=== PATIENT | female | born 1965 | race Hispanic/Latino ===

== ENCOUNTER 2017-03-07 09:01 | Emergency (ER) | payer MEDICAID ==
[2017-03-07 09:05] VITALS: BMI 24.9
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
[2017-03-07 09:57] LABS: BASO # 0.1 K/uL (0.0-0.2); EOS # 0.1 K/uL (0.0-0.7); EOS % 0.8 % (0.0-4.0); HEMATOCRIT 36.2 % (34.0-47.0); LYMPH # 1.9 K/uL (1.0-4.3); LYMPH % 25.7 % (20.0-40.0); MEAN CELL VOLUME 95.8 fl (81.0-99.0); MEAN CORPUSCULAR HEMOGLOBIN 32.8 pg (27.0-31.0); MEAN CORPUSCULAR HGB CONC 34.2 g/dL (33.0-37.0); MONO # 0.5 K/uL (0.0-0.8); MONO % 6.6 % (0.0-10.0); NEUT # 4.8 K/uL (1.8-7.0); NEUT % 65.9 % (50.0-75.0); NRBC % 0.1 % (0.0-0.0); RED CELL DISTRIBUTION WIDTH 14.3 % (11.5-14.5); WHITE BLOOD COUNT 7.2 K/uL (4.8-10.8)
[2017-03-07 10:07] LABS: ALB/GLOB RATIO 1.3 (1.0-2.1); ALCOHOL SERUM < 10 mg/dl (0-10); ALKALINE PHOSPHATASE 57 U/L (38-126); ALT/SGPT 34 U/L (9-52); AST/SGOT 28 U/L (14-36); BILIRUBIN,TOTAL 0.5 mg/dl (0.2-1.3); BLOOD UREA NITROGEN 8 mg/dl (7-17); CALCIUM 9.2 mg/dL (8.4-10.2); CARBON DIOXIDE 25 mmol/L (22-30); CHLORIDE 105 mmol/L (98-107); GFR AFRICAN-AMERICAN > 60; GLUCOSE,RANDOM 104 mg/dL (65-105); POTASSIUM 4.1 MMOL/L (3.6-5.0); SODIUM 141 mmol/l (132-148); TOTAL PROTEIN 7.9 G/DL (6.3-8.2)
[2017-03-07 13:37] LABS: RBC URINE 4 /hpf (0-3); URINE BACTERIA OCC (<OCC); URINE BILIRUBIN NEGATIVE (NEGATIVE); URINE BLOOD NEGATIVE (NEGATIVE); URINE COLOR YELLOW (YELLOW); URINE GLUCOSE (UA) NEG (Normal); URINE KETONE NEGATIVE (NEGATIVE); URINE LEUKOCYTE ESTERASE MOD Leu/uL (Negative); URINE PROTEIN NEGATIVE (NEGATIVE); URINE UROBILINOGEN 0.2-1.0 mg/dL (0.2-1.0); WBC URINE 27 /hpf (0-5)
[2017-03-07 16:15] VITALS: O2SAT 98
--- NOTE | 2017-03-07 18:26 | RAD ---
HISTORY: psych clearance COMPARISON: No prior. FINDINGS: LUNGS: Mild hyperinflation. Rule out chronic changes of COPD or emphysema. PLEURA: No significant pleural effusion identified, no pneumothorax apparent. CARDIOVASCULAR: Normal. OSSEOUS STRUCTURES: No significant abnormalities. VISUALIZED UPPER ABDOMEN: Normal. OTHER FINDINGS: None. IMPRESSION: Mild hyperinflation. Rule out chronic changes of COPD or emphysema.
[2017-03-07 19:44] VITALS: BP 110/52; PULSE 58; RESP 14; TEMP 98.4
--- NOTE | 2017-03-07 21:10 | ED PDOC ---
- Laboratory Results Result Diagrams: 03/07/17 09:46 03/07/17 09:46 - ECG O2 Sat by Pulse Oximetry: 98 Medical Decision Making Medical Decision Makin:00 Pt signed out to me by Dr. Michelle MD. Pending [facility] screen and disposition. 22:00 Pt is cleared for discharge as discussed with Dr. Canchola. Pt is noted to have a UTI and will be given a prescription for Macrobid. Advised to follow up with PMD within 2-3 days and to return if symptoms persist or worsen. Condition is stable for discharge. Clinical Impression- Schizophrenia Documented by Claudia Spencer, acting as a scribe for Alexi Wall MD. All medical record entries made by the Scribe were at my direction and personally dictated by me. I have reviewed the chart and agree that the record accurately reflects my personal performance of the history, physical exam, medical decision making, and the department course for this patient. I have also personally directed, reviewed, and agree with the discharge instructions and disposition. Disposition Counseled Patient/Family Regarding: Studies Performed, Diagnosis, Need For Followup - Clinical Impression Clinical Impression: Schizophrenia - POA Present On Arrival: None - Disposition Referrals: FAMILY PROVIDER,NO [Primary Care Provider] - Disposition: Hospitalized as Observation Patient Disposition Time: 22:00 Condition: STABLE Additional Instructions: Please follow up with your doctor this week. Return to the ER for any worsening symptoms or for any other concerns. Prescriptions: Nitrofurantoin Macrocrystals [Macrobid] 100 mg PO BID #14 cap Instructions: Urinary Tract Infection in Women (ED), Schizophrenia (ED)
--- NOTE | 2017-03-08 01:08 | CARD ---
APPROVED REPORT EKG Measurement Heart [id number] <Conclusion> Normal sinus rhythm Normal ECG
== END 2017-03-07 22:41 | disposition home or self-care (01) ==
LOC: EDBD 09:01 → H.ER 09:01 → MERGE 09:01 → H.ER 22:41
DX: F20.9 Schizophrenia, unspecified (principal); N39.0 Urinary tract infection, site not specified

== ENCOUNTER 2017-03-13 08:36 | Emergency (ER) | payer MEDICAID ==
[2017-03-13 08:36] VITALS: BMI 24.9
[2017-03-13 08:45] VITALS: BP 117/71; PULSE 82; RESP 18; TEMP 97; O2SAT 98
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
[2017-03-13 10:38] LABS: BARBITURATES, UR NEGATIVE (NEGATIVE); BENZODIAZEPINES, UR NEGATIVE (NEGATIVE); OPIATES, UR NEGATIVE (NEGATIVE); PHENCYCLIDINE, UR NEGATIVE (NEGATIVE)
== END 2017-03-13 10:35 | disposition home or self-care (01) ==
LOC: H.ER 08:36
DX: F41.9 Anxiety disorder, unspecified (principal); F20.9 Schizophrenia, unspecified

== ENCOUNTER 2017-04-11 12:37 | Emergency (ER) | payer MEDICAID ==
[2017-04-11 12:38] VITALS: BMI 24.9
[2017-04-11 12:45] VITALS: BP 120/70; PULSE 79; RESP 16; TEMP 98.7; O2SAT 97
--- NOTE | 2017-04-11 13:05 | ED PDOC ---
HPI: Psych/Substance Abuse Time Seen by Provider: 04/11/17 12:43 Chief Complaint (Nursing): Psychiatric Evaluation Chief Complaint (Provider): Psychiatric Evaluation History Per: Patient, EMS History/Exam Limitations: no limitations Current Symptoms Are (Timing): Other (patient denies having any complaints) Modifying Factor(s): None Severity: Mild Associated Symptoms: denies: Suicidal Thoughts (no homicidal thoughts), Suicidal Plan Additional History Per: EMS Additional Complaint(s): 51 year old female with a pertinent medical history of bipolar disorder is brought into the ED by EMS for a psychiatric evaluation. 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 EMS were also informed that the patient is on psychiatric medications, but has not taken them for a month. The patient states that she was outside buying lunch when the conversion man stopped her and brought her into the ED. She has no complaints at this time and denies having suicidal ideations, homicidal ideations, and hallucinations. She denies taking psychiatric medications because she has not been prescribed any. PMD: Not provided. Past Medical History Reviewed: Historical Data, Nursing Documentation, Vital Signs Vital Signs: Last Vital Signs Temp 98.7 F 04/11/17 12:40 Pulse 79 04/11/17 12:40 Resp 16 04/11/17 12:40 BP 120/70 04/11/17 12:40 Pulse Ox 97 04/11/17 12:40 - Medical History PMH: Anxiety, Bipolar Disorder, Schizophrenia (per EMT) Denies: Diabetes, Hepatitis, HIV, HTN, Chronic Kidney Disease, Seizures, Sexually Transmitted Disease - Family History Family History: States: Unknown Family Hx - Social History Current smoker - smoking cessation education provided: Yes (5x cigarettes per day) Alcohol: None Drugs: Denies - Immunization History Hx Tetanus Toxoid Vaccination: No Hx Influenza Vaccination: No Hx Pneumococcal Vaccination: No - Home Medications Home Medications: Ambulatory Orders Medication Instructions Recorded Acetaminophen [Tylenol] 325 mg PO PRN PRN 04/08/15 Depakote ER(ONCE DAILY) 500 mg PO TID 04/08/15 Ibuprofen [Motrin Tab] 200 mg PO PRN PRN 04/08/15 LORazepam [Ativan] 1 tab PO TID 04/08/15 Paliperidone Palmitate [Invega 1.5 ml SC Q30D 04/08/15 Sustenna] Paliperidone [Invega] 6 mg PO BID 04/08/15 Amoxicillin/Clavulanate Pota 1 tab PO BID #20 tab 04/10/15 [Augmentin 875 mg-125 mg] Nitrofurantoin Macrocrystals 100 mg PO BID #14 cap 03/07/17 [Macrobid] - Allergies Allergies/Adverse Reactions: Allergies Allergy/AdvReac Type Severity Reaction Status Date / Time No Known Allergies Allergy Verified 04/08/15 10:33 Review of Systems ROS Statement: Except As Marked, All Systems Reviewed And Found Negative Psych: Negative for: Suicidal ideation, Other (homicidal ideation, hallucinations) Physical Exam - Reviewed Nursing Documentation Reviewed: Yes Vital Signs Reviewed: Yes - Physical Exam Appears: Positive for: Well, Non-toxic, No Acute Distress (calm, cooperative) Head Exam: Positive for: ATRAUMATIC, NORMOCEPHALIC Skin: Positive for: Normal Color, Warm, Dry Eye Exam: Positive for: Normal appearance, EOMI, PERRL ENT: Positive for: Normal ENT Inspection Neck: Positive for: Normal, Painless ROM, Supple Cardiovascular/Chest: Positive for: Regular Rate, Rhythm Respiratory: Positive for: Normal Breath Sounds. Negative for: Respiratory Distress Gastrointestinal/Abdominal: Positive for: Normal Exam, Soft. Negative for: Tenderness Back: Positive for: Normal Inspection Extremity: Positive for: Normal ROM Neurologic/Psych: Positive for: Alert, Oriented (3x). Negative for: Motor/ Sensory Deficits, Mood/Affect - ECG O2 Sat by Pulse Oximetry: 97 (RA) Pulse Ox Interpretation: Normal Medical Decision Making Medical Decision Makin:43 Initial impression: 51 year old female with bipolar disorder. Plan: Crisis evaluation: Patient was evaluated by Kathy who spoke with Dr. Poe and cleared pt. for discharge for outpatient f/u with [facility] ( which patient already goes to). Scribe Attestation: Documented by Annie Alejo, acting as a scribe for Balta Coates Provider Scribe Attestation: All medical record entries made by the Scribe were at my direction and personally dictated by me. I have reviewed the chart and agree that the record accurately reflects my personal performance of the history, physical exam, medical decision making, and the department course for this patient. I have also personally directed, reviewed, and agree with the discharge instructions and disposition. Disposition - Clinical Impression Clinical Impression: Bipolar 1 disorder - Patient ED Disposition Is Patient to be Admitted: No - Disposition Disposition: Routine/Home Disposition Time: 12:58 Condition: STABLE Additional Instructions: Follow up with outpatient mental health clinic as previously scheduled without fail. Instructions: Bipolar Disorder (ED) Forms: [facility] (Mongolian) Print Language: TURKMEN
[2017-04-11] MEDS ORDERED: Acetaminophen 160 mg/5 ml UD ONE (16:55)
[2017-04-12] MEDS ORDERED: Gentamicin Sulfate 0.3% Ophth SOLN ONE (00:19)
== END 2017-04-11 13:05 | disposition home or self-care (01) ==
LOC: H.ER 12:37
DX: F31.9 Bipolar disorder, unspecified (principal); F17.210 Nicotine dependence, cigarettes, uncomplicated; Z86.59 Personal history of other mental and behavioral disorders; Z00.8 Encounter for other general examination

== ENCOUNTER 2017-04-11 23:04 | Inpatient (IN) | payer MEDICAID ==
[2017-04-11 23:04] VITALS: BMI 24.9
--- NOTE | 2017-04-11 23:21 | ED PDOC ---
HPI: Psych/Substance Abuse Time Seen by Provider: 04/11/17 23:16 Chief Complaint (Nursing): Psychiatric Evaluation Chief Complaint (Provider): Crisis eval History Per: Patient, EMS, Family Additional Complaint(s): 51 year old female with a pertinent medical history of bipolar disorder is brought into the ED by EMS for a psychiatric evaluation, second visit today. 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 EMS were also informed that the patient is on psychiatric medications, but has not taken them for a month. The patient states that she was outside buying lunch when the wilton weaver stopped her and brought her into the ED. She has no complaints at this time and denies having suicidal ideations, homicidal ideations, and hallucinations. She denies taking psychiatric medications because she has not been prescribed any. PMD: Not provided. Past Medical History Reviewed: Historical Data, Nursing Documentation, Vital Signs Vital Signs: Last Vital Signs Temp 98.4 F 04/11/17 23:11 Pulse 75 04/11/17 23:11 Resp 16 04/11/17 23:11 BP 124/79 04/11/17 23:11 Pulse Ox 98 04/11/17 23:11 - Medical History PMH: Anxiety, Bipolar Disorder, Schizophrenia (per EMT) Denies: Diabetes, Hepatitis, HIV, HTN, Chronic Kidney Disease, Seizures, Sexually Transmitted Disease - Surgical History Surgical History: No Surg Hx - Family History Family History: States: Unknown Family Hx - Living Arrangements Living Arrangements: With Family - Social History Current smoker - smoking cessation education provided: Yes Alcohol: Social Drugs: Denies - Immunization History Hx Tetanus Toxoid Vaccination: No Hx Influenza Vaccination: No Hx Pneumococcal Vaccination: No - Home Medications Home Medications: Ambulatory Orders Medication Instructions Recorded Paliperidone [Invega] 6 mg PO BID 04/08/15 Levothyroxine Sodium [Levoxyl] 04/12/17 - Allergies Allergies/Adverse Reactions: Allergies Allergy/AdvReac Type Severity Reaction Status Date / Time No Known Allergies Allergy Verified 04/11/17 23:11 Review of Systems ROS Statement: Except As Marked, All Systems Reviewed And Found Negative Physical Exam - Reviewed Nursing Documentation Reviewed: Yes Vital Signs Reviewed: Yes - Physical Exam Appears: Positive for: Well, Non-toxic, No Acute Distress Head Exam: Positive for: ATRAUMATIC, NORMAL INSPECTION, NORMOCEPHALIC Skin: Positive for: Normal Color, Warm, DRY Eye Exam: Positive for: EOMI, PERRL, Conjunctival injection, Other (purulent drainage to right) ENT: Positive for: Normal ENT Inspection Neck: Positive for: Normal, Painless ROM Cardiovascular/Chest: Positive for: Regular Rate, Rhythm Respiratory: Positive for: CNT, Normal Breath Sounds Gastrointestinal/Abdominal: Positive for: Normal Exam, Bowel Sounds, Soft Back: Positive for: Normal Inspection Extremity: Positive for: Normal ROM Neurologic/Psych: Positive for: Alert, Oriented - Laboratory Results Result Diagrams: 04/11/17 00:04 04/11/17 00:04 - ECG O2 Sat by Pulse Oximetry: 98 Medical Decision Making Medical Decision Making: EKG NSR at 75 bpm, no acute ST changes, as read by ED MD Diagnostics ordered Pt with redness to b/l eyes, purulent drainage from right. started on Gent optho ointment CBC, COMP and UA resulted WNL UDS and Alcohol (-) CXR: NAD, as read by [facility] Pt underwent crisis eval, see note. To be admitted for schizophrenia, Dr. Poe Disposition - Clinical Impression Clinical Impression: Schizophrenia, Conjunctivitis - Patient ED Disposition Is Patient to be Admitted: Yes - Disposition Disposition Time: 03:27 Condition: STABLE Forms: [facility] (Haitian) - POA Present On Arrival: None
[2017-04-12] MEDS ORDERED: Gentamicin Sulfate 0.3% Ophth SOLN OU STA (00:07)
[2017-04-12 00:08] LABS: BASO # 0.1 K/uL (0.0-0.2); BASO % 0.9 % (0.0-2.0); EOS # 0.1 K/uL (0.0-0.7); HEMATOCRIT 36.7 % (34.0-47.0); LYMPH # 2.5 K/uL (1.0-4.3); LYMPH % 24.3 % (20.0-40.0); MEAN CELL VOLUME 97.2 fl (81.0-99.0); MEAN CORPUSCULAR HEMOGLOBIN 33.2 pg (27.0-31.0); MEAN CORPUSCULAR HGB CONC 34.1 g/dL (33.0-37.0); MEAN PLATELET VOLUME 7.2 fl (7.2-11.7); MONO # 0.7 K/uL (0.0-0.8); NEUT % 66.8 % (50.0-75.0); RED CELL DISTRIBUTION WIDTH 14.1 % (11.5-14.5); WHITE BLOOD COUNT 10.4 K/uL (4.8-10.8)
[2017-04-12 00:18] LABS: ALB/GLOB RATIO 1.4 (1.0-2.1); ALCOHOL SERUM < 10 mg/dl (0-10); ALKALINE PHOSPHATASE 65 U/L (38-126); ALT/SGPT 32 U/L (9-52); AST/SGOT 38 U/L (14-36); BILIRUBIN,TOTAL 0.6 mg/dl (0.2-1.3); BLOOD UREA NITROGEN 14 mg/dl (7-17); CALCIUM 9.5 mg/dL (8.4-10.2); CARBON DIOXIDE 24 mmol/L (22-30); CHLORIDE 99 mmol/L (98-107); GFR AFRICAN-AMERICAN > 60; GLUCOSE,RANDOM 122 mg/dL (65-105); POTASSIUM 4.2 MMOL/L (3.6-5.0); SODIUM 131 mmol/l (132-148); TOTAL PROTEIN 7.7 G/DL (6.3-8.2)
[2017-04-12 03:12] LABS: URINE BACTERIA RARE (<OCC); URINE BILIRUBIN NEGATIVE (NEGATIVE); URINE BLOOD NEGATIVE (NEGATIVE); URINE COLOR STRAW (YELLOW); URINE GLUCOSE (UA) NEG (Normal); URINE KETONE NEGATIVE (NEGATIVE); URINE LEUKOCYTE ESTERASE NEG Leu/uL (Negative); URINE PROTEIN NEGATIVE (NEGATIVE); URINE UROBILINOGEN 0.2-1.0 mg/dL (0.2-1.0); WBC URINE < 1 /hpf (0-5)
[2017-04-12 03:54] VITALS: O2SAT 99
[2017-04-12] MEDS ORDERED: DiphenhydrAMINE 50 mg/ml Inj IM PRN (04:24)
[2017-04-12] MEDS ORDERED: Alum-Mag Hydrox-Simethicone Susp (30 mL) PO PRN (04:24)
[2017-04-12] MEDS ORDERED: Magnesium Hydroxide Susp 30 ml UD PO PRN (04:24)
[2017-04-12 05:01] VITALS: RESP 18
--- NOTE | 2017-04-12 12:20 | PCM.PSYCH ---
Initial Psychiatric Evaluation - Initial Psychiatric Evaluation Type of Admission: Voluntary Legal Status: Capacity Chief Complaint (in patient's own words): i want to go now! Patient's Reaction to Hospitalization: angry History of Present Illness and Precipitating Events: pt with history of schizophrenia. apparently was at [facility] involuntary in January and has not been adherent to treatment. pt presenting to ER with bizarre delusions that her home is unsafe and that some force is effecting her and touching her leg. today on the unit she is loud and demanding to leave. she denies that she was ever in a mental health facility and states she does not have a mental health issue. she stated she was signed in against her will and did not agree to come to this hospital. she thinks that she signed a 48 hour notice when she signed her admission forms. she wants to leave the hospital immediately and will not give any reliable history at this time. Current Medications: Active Medications Generic Name Dose Route Start Last Admin Trade Name Freq PRN Reason Stop Dose Admin Acetaminophen 650 mg 04/12/17 04:24 Tylenol 325mg Tab PO Q4 PRN pain level 4-7 Al Hydrox/Mg Hydrox/Simethicone 30 ml 04/12/17 04:24 Maalox Plus 30 Ml PO Q4 PRN Dyspepsia Bismuth Subsalicylate 524 mg 04/12/17 04:27 Pepto-Bismol PO Q4 PRN Diarrhea Diphenhydramine HCl 50 mg 04/12/17 04:24 Benadryl IM Q6 PRN Extrapyramidal S/S Unable PO Diphenhydramine HCl 50 mg 04/12/17 04:24 Benadryl PO Q6 PRN Extrapyramidal Symptoms Diphenhydramine HCl 50 mg 04/12/17 04:27 Benadryl PO HS PRN Sleep Haloperidol 5 mg 04/12/17 04:24 Haldol PO Q4 PRN Agitation Haloperidol Lactate 5 mg 04/12/17 04:24 Haldol IM Q4 PRN Agitation, Unable to Take PO Lorazepam 2 mg 04/12/17 04:24 Ativan IM Q4 PRN Anxiety/Agitation,Unable PO Lorazepam 2 mg 04/12/17 04:24 Ativan PO Q4 PRN Anxiety/Agitation Magnesium Hydroxide 30 ml 04/12/17 04:24 Milk Of Magnesia PO HS PRN Constipation Paliperidone 6 mg 04/12/17 12:00 Invega PO DAILY ISAIAS Past Psychiatric History - Past Psychiatric History Previous Treatment History: Inpatient Prior Professional Help: per chart committed to [facility] in january 2017 Prior Psychiatric Treatment: per chart on invega in past History of Abuse: will not provide information History of ETOH/Drug Use: will not give information- uds is negative History of Family Illness: unknown Pertinent Medical Hx (Current Medical&Sleep Prob, Allergies): Allergies Allergy/AdvReac Type Severity Reaction Status Date / Time No Known Allergies Allergy Verified 04/11/17 23:11 Paliperidone [Invega] 6 mg PO BID 04/08/15 Levothyroxine Sodium [Levoxyl] 04/12/17 Review of Systems - Psychiatric Psychiatric: As Per HPI, Abnormal Sleep Pattern, Anxiety, Paranoia, Tactile Hallucinations Mental Status Examination - Personal Presentation Personal Presentation: Looks stated age Additional comments: unkempt - Affect Affect: Blunted - Motor Activity Motor Activity: Psychomotor Agitation - Reliability in Providing Information Reliability in Providing Information: Poor, due to alteration in thoughts ( paranoid/demanding to leave), Poor, due to altered mood - Speech Speech: Organized - Mood Mood: Anxious - Formal Thought Process Formal Thought Process: Delusions, Paranoia, Loosening of associations - Hallucinations/Delusions Delusions: Persecution - Obsessions/Compulsions Obsessions: No Compulsions: No - Cognitive Functions Orientation: Person, Place, Situation Sensorium: Alert Attention/Concentration: Attentive Abstract Thinking: [place] Estimate of Intelligence: Below average Judgement: Imparied, as evidence by: Poor judgement Memory: Recent intact, as evidence by: Ability to recall events of the day - Risk Risk: Diminished functioning (wandering in community, afraid to be in own home) - Strength & Assets Inventory Strength & Assets Inventory: Intelligence DSM 5 DX - DSM 5 DSM 5 Diagnosis: schizophrenia, paranoid - Recommended/Plan of Treatment Treatment Recommendations and Plan of Treatment: admit to [facility] for safety and observation gather collateral information provide supportive therapy attempt to adjust meds- have ordered invega, as pt has taken in past. pt is refusing will have hospitalist consult screen for involuntary admission as pt is grossly disturbed by her symptoms and a danger to self and needs treatment and is refusing at this point. Projected ELOS: 5-7 days Prognosis: guarded
--- NOTE | 2017-04-12 14:25 | RAD ---
PROCEDURE: CHEST RADIOGRAPH, 1 VIEW HISTORY: med screening COMPARISON: None available. FINDINGS: LUNGS: Clear. PLEURA: No pneumothorax or pleural fluid seen. CARDIOVASCULAR: No radiographic findings to suggest acute or significant cardiovascular disease. OSSEOUS STRUCTURES: No significant abnormalities. VISUALIZED UPPER ABDOMEN: Normal. OTHER FINDINGS: None. IMPRESSION: No active disease.
[2017-04-12] MEDS: Paliperidone 6 MG ER TAB PO SCH (15:17)
--- NOTE | 2017-04-12 21:03 | CP.PCM.CON ---
History of Present Illness - History of Present Illness History of Present Illness: 51 yo female with history of schizophrenia admitted in psyche unit because of bizarre delusions. Review of Systems - Review of Systems All systems: reviewed and no additional remarkable complaints except (aside from those mentioned above, 12 point system review were negative by me) Past Patient History - Infectious Disease Hx of Infectious Diseases: None - Tetanus Immunizations Tetanus Immunization: Unknown - Past Medical History & Family History Past Medical History?: Yes Past Family History: Reviewed and not pertinent - Past Social History Smoking Status: Light Smoker < 10 Cigarettes Daily Alcohol: Social Drugs: Denies - CARDIAC Hx Cardiac Disorders: No Hx Hypertension: No - PULMONARY Hx Respiratory Disorders: No Hx Tuberculosis: No - NEUROLOGICAL Hx Neurological Disorder: No Hx Seizures: No - HEENT Hx HEENT Problems: No - RENAL Hx Chronic Kidney Disease: No - ENDOCRINE/METABOLIC Hx Endocrine Disorders: No - HEMATOLOGICAL/ONCOLOGICAL Hx Blood Disorders: No Hx Human Immunodeficiency Virus (HIV): No - INTEGUMENTARY Hx Dermatological Problems: No - MUSCULOSKELETAL/RHEUMATOLOGICAL Hx Musculoskeletal Disorders: No - GASTROINTESTINAL Hx Gastrointestinal Disorders: No - GENITOURINARY/GYNECOLOGICAL Hx Genitourinary Disorders: No Hx Sexually Transmitted Disorders: No - PSYCHIATRIC Hx Substance Use: No - SURGICAL HISTORY Hx Surgeries: Yes Other/Comment: as per pt. plastic surgery- on left 4th finger many years ago - ANESTHESIA Hx Anesthesia: Yes Hx Anesthesia Reactions: No Meds Allergies/Adverse Reactions: Allergies Allergy/AdvReac Type Severity Reaction Status Date / Time No Known Allergies Allergy Verified 04/11/17 23:11 - Medications Medications: Current Medications Acetaminophen (Tylenol 325mg Tab) 650 mg PO Q4 PRN PRN Reason: pain level 4-7 Al Hydrox/Mg Hydrox/Simethicone (Maalox Plus 30 Ml) 30 ml PO Q4 PRN PRN Reason: Dyspepsia Bismuth Subsalicylate (Pepto-Bismol) 524 mg PO Q4 PRN PRN Reason: Diarrhea Diphenhydramine HCl (Benadryl) 50 mg IM Q6 PRN PRN Reason: Extrapyramidal S/S Unable PO Diphenhydramine HCl (Benadryl) 50 mg PO Q6 PRN PRN Reason: Extrapyramidal Symptoms Diphenhydramine HCl (Benadryl) 50 mg PO HS PRN PRN Reason: Sleep Haloperidol (Haldol) 5 mg PO Q4 PRN PRN Reason: Agitation Haloperidol Lactate (Haldol) 5 mg IM Q4 PRN PRN Reason: Agitation, Unable to Take PO Lorazepam (Ativan) 2 mg IM Q4 PRN PRN Reason: Anxiety/Agitation,Unable PO Lorazepam (Ativan) 2 mg PO Q4 PRN PRN Reason: Anxiety/Agitation Magnesium Hydroxide (Milk Of Magnesia) 30 ml PO HS PRN PRN Reason: Constipation Paliperidone (Invega) 6 mg PO DAILY [facility] Last Admin: 04/12/17 15:17 Dose: 6 mg Physical Exam - Constitutional Appears: No Acute Distress - Head Exam Head Exam: ATRAUMATIC - Eye Exam Eye Exam: absent: Scleral icterus - ENT Exam ENT Exam: Mucous Membranes Moist - Neck Exam Neck exam: Negative for: Meningismus - Respiratory Exam Respiratory Exam: absent: Rhonchi, Wheezes, Respiratory Distress - Cardiovascular Exam Cardiovascular Exam: REGULAR RHYTHM, +S1, +S2 - GI/Abdominal Exam GI & Abdominal Exam: Soft. absent: Tenderness - Rectal Exam Rectal Exam: Deferred - Extremities Exam Extremities exam: Negative for: pedal edema - Neurological Exam Neurological exam: Alert, Oriented x3 - Psychiatric Exam Psychiatric exam: Normal Affect - Skin Skin Exam: Dry, Intact Results - Vital Signs Recent Vital Signs: Last Vital Signs Temp 97.5 F L 04/12/17 16:57 Pulse 71 04/12/17 16:57 Resp 18 04/12/17 16:57 BP 127/74 04/12/17 16:57 Pulse Ox 99 04/12/17 03:53 - Labs Result Diagrams: 04/11/17 00:04 04/11/17 00:04 Labs: Laboratory Results - last 24 hr 04/12/17 18:54 Urine HCG, Qual Negative Assessment & Plan (1) Schizophrenia Status: Acute Comment: psyche is managing
[2017-04-13] MEDS: Paliperidone 6 MG ER TAB PO SCH (09:30)
--- NOTE | 2017-04-13 13:00 | PCM.PYCHPN ---
Psychiatric Progress Note - Psychiatric Progress Note Patient seen today, length of contact: discussed with team Patient Chief Complaint: i shouldn't be here Problems Identified/Issues Discussed: pt is denying needing treatment. she is loud and with disorganized thoughts. she has been accepted at [facility] [place]. pt has been taking medications. Medication Change: No Medical Record Reviewed: Yes Mental Status Examination - Cognitive Function Orientation: Person, Place, Situation Memory: Intact Attention: WNL Concentration: WNL Association: WNL Fund of Knowledge: [facility] Decription of patient's judgement and insights: fair - Mood Mood: Anxious - Affect Affect: Blunted - Speech Speech: Loud - Formal Thought Process Formal Thought Process: Delusions, Paranoia, Loosening of associations Psychotic Thoughts and Behaviors: grossly disorganized thoughts - Suicidal Ideation Suicidal Ideation: No - Homicidal Ideation Homicidal Ideation: No Goal/Treatment Plan - Goal/Treatment Plan Need for Continued Stay: Remain at risks for inpatient hospitalization, Severe functional impairment Progress Toward Problem(s) and Goals/Treatment Plan: schizoaffective disorder needs further treatment and stabilization disposition planning- will be transfered to [facility] when bed available. Estimated Date of D/C: 04/13/17
[2017-04-14] MEDS: Paliperidone 6 MG ER TAB PO SCH (08:51)
--- NOTE | 2017-04-14 09:43 | PCM.PYCHPN ---
Psychiatric Progress Note - Psychiatric Progress Note Patient seen today, length of contact: discussed with team Patient Chief Complaint: you haven't ever seen me Problems Identified/Issues Discussed: pt takes medications. she is still denying mental illness. she is angry, irritable. her thoughts are disorganized. Medication Change: No Medical Record Reviewed: Yes Mental Status Examination - Cognitive Function Orientation: Person, Place, Situation Memory: Intact Attention: WNL Concentration: WNL Association: WNL Fund of Knowledge: [facility] Decription of patient's judgement and insights: fair - Mood Mood: Anxious, Other (irritable) - Affect Affect: Blunted - Speech Speech: Loud - Formal Thought Process Formal Thought Process: Delusions, Paranoia, Loosening of associations Psychotic Thoughts and Behaviors: grossly disorganized thoughts - Suicidal Ideation Suicidal Ideation: No - Homicidal Ideation Homicidal Ideation: No Goal/Treatment Plan - Goal/Treatment Plan Need for Continued Stay: Remain at risks for inpatient hospitalization, Severe functional impairment Progress Toward Problem(s) and Goals/Treatment Plan: schizoaffective disorder needs further treatment and stabilization t/c increasing invega disposition planning- will [place] [facility] [place]. Estimated Date of D/C: 04/13/17
[2017-04-14] MEDS: Bismuth Subsalicylate 262 mg/15 ml Sus (240 ml) PO PRN (14:29)
--- NOTE | 2017-04-14 18:33 | CARD ---
APPROVED REPORT EKG Measurement Heart [id number] <Conclusion> Normal sinus rhythm Cannot rule out Anterior infarct, age undetermined Abnormal ECG
[2017-04-15] MEDS: Paliperidone 6 MG ER TAB PO SCH (09:00)
[2017-04-15] MEDS: Bismuth Subsalicylate 262 mg/15 ml Sus (240 ml) PO PRN (10:32)
--- NOTE | 2017-04-15 10:53 | PCM.PYCHPN ---
Psychiatric Progress Note - Psychiatric Progress Note Patient seen today, length of contact: discussed with team Patient Chief Complaint: tx doctor Problems Identified/Issues Discussed: pt continues to take medications. remains grossly disorganized and bizarre at times. less angry/irritable over last 2 days. awaiting bed at [facility] [place] Medication Change: No Medical Record Reviewed: Yes Mental Status Examination - Cognitive Function Orientation: Person, Place, Situation Memory: Intact Attention: WNL Concentration: WNL Association: WNL Fund of Knowledge: [facility] Decription of patient's judgement and insights: fair - Mood Mood: Anxious, Other (irritable) - Affect Affect: Blunted - Speech Speech: Loud - Formal Thought Process Formal Thought Process: Delusions, Paranoia, Loosening of associations Psychotic Thoughts and Behaviors: grossly disorganized thoughts - Suicidal Ideation Suicidal Ideation: No - Homicidal Ideation Homicidal Ideation: No Goal/Treatment Plan - Goal/Treatment Plan Need for Continued Stay: Remain at risks for inpatient hospitalization, Severe functional impairment Progress Toward Problem(s) and Goals/Treatment Plan: schizoaffective disorder needs further treatment and stabilization t/c increasing invega to 6mg bid tomorrow if pt still here disposition planning- will be transfered to [facility] when bed available. Estimated Date of D/C: 04/15/17
[2017-04-15 16:48] VITALS: BP 123/50; PULSE 95; TEMP 98.1
--- NOTE | 2017-04-16 14:34 | PCM.PYCHDC ---
Mental Status Examination - Mental Status Examination Description of patient's judgement and insight: poor i./j Psychotic Thoughts and Behaviors: grossly disorganized thoughts Suicidal Ideation: No Current Homicidal Ideation?: No Plan: see mse from today's progress note Discharge Summary - Discharge Note Reason for Hospitalization: increasing paranoid thoughts, bizarre behaviors, fear of being in her own home. Psychiatric History (includes Medical, Family, Personal Hx): history of schizophrenia, prior hospitalizations Consultations:: List each consultation separately and include: 1. Reason for request. 2. Findings. 3. Follow-up Consultations: seen by hospitalist Summary of Hospital Course include:: 1. Description of specific treatment plan utilized for patients during their course of treatmen. 2. Summarize the time- course for resolution of acute symptoms and/or regressed behaviors. 3. Describe issues identified and worked on during hospitalization. 4. Describe medication utilized. 5. Describe medical problems identified and treated. 6. Reassessment of suicide risk Summary of Hospital Course: pt with history of schizophrenia. apparently was at [facility] [place] involuntary in [place] and has not been adherent to treatment. pt presenting to ER with bizarre delusions that her home is unsafe and that some force is effecting her and touching her leg. today on the unit she is loud and demanding to leave. she denies that she was ever in a mental health facility and states she does not have a mental health issue. she stated she was signed in against her will and did not agree to come to this hospital. she thinks that she signed a 48 hour notice when she signed her admission forms. she wants to leave the hospital immediately and will not give any reliable history at this time. hospital course pt was admitted to [facility] and oriented to the unit. she immediately put in a 48 hour notice. she was screened by [facility] [place] and was found to meet criteria for involuntary hospitalization. she took medications while on the unit, but continued to deny having mental illness. pt was transferred to [facility] [place] when a bed became available. - Final Diagnosis (DSM 5) Condition upon Discharge: STABLE DSM 5: schizophrenia, paranoid Disposition: Transfer [facility] [place] [facility] Follow-up Treatment Plan: follow up with treatment at [facility] [place] - Smoking Cessation Smoking Cessation Medication prescribed: No - Antipsychotic Medications Pt discharged on 2 or more routine antipsychotic medications: No
== END 2017-04-15 21:10 | disposition short-term general hospital (02) | DRG 430 ==
LOC: H.ER 23:04 → H.ERHOLD 04-12 03:20 → H.PSYCH 04-12 04:20
PROVIDERS: ADMIT Psychiatry & Neurology Psychiatry; ATTEND Psychiatry & Neurology Psychiatry
PROC: GZHZZZZ Group Psychotherapy (ICD-10-PCS; principal; 2017-04-12)
PROC: GZ56ZZZ Individual Psychotherapy, Supportive (ICD-10-PCS; 2017-04-12)
DX: F25.9 Schizoaffective disorder, unspecified (principal); H10.9 Unspecified conjunctivitis